=== PATIENT | male | born 1970 | race Caucasian/White ===

== ENCOUNTER 2023-10-24 22:59 | Inpatient (IN) | payer BC ==
[2023-10-25] MEDS: Diphtheria,Pertussis(Acell),Tetanus Vaccine 0.5 ML Syringe IM ONE (02:10)
[2023-10-25] MEDS ORDERED: Sodium Chloride 0.9% 10 ML Syringe FLUSH PRN (02:24)
[2023-10-25] MEDS: Pantoprazole 40 MG Vial IVPUSH SCH (09:00)
[2023-10-25] MEDS ORDERED: Ondansetron 4 MG/2 ML SDV IVPUSH PRN (13:08)
[2023-10-25] MEDS ORDERED: Polyethylene Glycol 3350 Powder 17 GM Packet PO PRN (13:09)
[2023-10-25 13:19] LABS: HEMATOCRIT 43.3 % (38.4-49.7); HEMOGLOBIN 14.9 g/dL (12.9-16.9); MEAN CORPUSCULAR HEMOGLOBIN 29.7 pg (31.6-35.5); MEAN CORPUSCULAR HGB CONC 34.4 g/dL (31.6-35.5); MEAN CORPUSCULAR VOLUME 86.4 fL (81.4-99.0); RED BLOOD CELL COUNT 5.01 M/uL (4.14-5.76); WHITE BLOOD CELL COUNT,WBC 12.5 K/uL (3.2-11.0)
[2023-10-25] MEDS: Calcium Carbonate 500 MG Tab.Chew PO PRN (13:26)
[2023-10-25] MEDS: oxyCODONE 5 MG Tab PO PRN (13:26)
[2023-10-25] MEDS: Heparin Sodium 5,000 Units/ML Vial SUBCUT SCH (13:34)
[2023-10-25 13:35] LABS: CALCIUM 8.9 mg/dL (8.5-10.1); CREATININE 0.9 mg/dL (0.8-1.3); EST CRCL DRUG DOSING (CG) 109.74 mL/min; POTASSIUM,K 3.7 mmol/L (3.6-5.2)
[2023-10-25 13:36] LABS: ANION GAP 12.7 mmol/L (5.0-14.0)
[2023-10-25] MEDS: Sodium Chloride 0.9% 1,000 ML IV SCH (23:59)
[2023-10-26] MEDS ORDERED: Midazolam 1 MG/ML 2 ML SDV ONE (07:21)
[2023-10-26] MEDS ORDERED: fentaNYL 100 MCG/2 ML SDV ONE (07:21)
[2023-10-26] MEDS ORDERED: Propofol 200 MG/20 ML SDV ONE ×2 (07:21→08:52)
[2023-10-26] MEDS: Pantoprazole 40 MG Tab.CR PO SCH (15:31)
[2023-10-26] MEDS: Ketorolac 30 MG/ML SDV IVPUSH PRN (18:27)
[2023-10-27] MEDS: Aspirin 325 MG Tab.EC PO SCH (08:10)
== END 2023-10-27 14:06 | disposition home or self-care (01) | DRG 313 ==
LOC: JP.ED 22:59 → JP.MS 10-25 02:24
PROVIDERS: ADMIT Hospitalist; ATTEND Family Medicine
PROC: 0QSH04Z Reposition Left Tibia with Internal Fixation Device, Open Approach (ICD-10-PCS; principal; 2023-10-25)
DX: S82.142A Displaced bicondylar fracture of left tibia, initial encounter for closed fracture (principal); S72.402A Unspecified fracture of lower end of left femur, initial encounter for closed fracture; K21.9 Gastro-esophageal reflux disease without esophagitis; M54.9 Dorsalgia, unspecified; G89.29 Other chronic pain; Z91.013 Allergy to seafood; Z86.16 Personal history of COVID-19; W55.12XA Struck by horse, initial encounter
CPT/HCPCS: 36415; 73552-26-LT; 73552-LT; 73564-26-LT; 73564-LT; 73700-LT; 76000; 80048; 83735; 85027; 90715; 93005; 97161-GP; 99232; 99238; A9270-GY; C1713; C9113; J0690; J1644; J1885; J2250; J2704; J3010; J3490; J7030

== ENCOUNTER 2024-06-15 08:52 | Day surgery (SDC) | payer BC ==
[2024-06-15] MEDS: Nozin Nasal Sanitizer NASBOTH ONE (09:35)
[2024-06-15] MEDS: Lactated Ringers 1,000 ML IV SCH (09:42)
[2024-06-15 09:45] LABS: HEMATOCRIT 42.4 % (38.4-49.7); HEMOGLOBIN 14.7 g/dL (12.9-16.9); MEAN CORPUSCULAR HEMOGLOBIN 30.1 pg (31.6-35.5); MEAN CORPUSCULAR HGB CONC 34.7 g/dL (31.6-35.5); MEAN CORPUSCULAR VOLUME 86.7 fL (81.4-99.0); RED BLOOD CELL COUNT 4.89 M/uL (4.14-5.76); WHITE BLOOD CELL COUNT,WBC 9.7 K/uL (3.2-11.0)
[2024-06-15 10:05] LABS: ANION GAP 9.6 mmol/L (5.0-14.0); CALCIUM 8.2 mg/dL (8.5-10.1); CREATININE 0.8 mg/dL (0.8-1.3); EST CRCL DRUG DOSING (CG) 122.07 mL/min; POTASSIUM,K 3.9 mmol/L (3.6-5.2)
[2024-06-15] MEDS ORDERED: Dexamethasone 4 MG/ML SDV ONE (10:23)
[2024-06-15] MEDS ORDERED: Ondansetron 4 MG/2 ML SDV ONE (10:23)
[2024-06-15] MEDS ORDERED: Rocuronium 50 MG/5 ML Vial ONE (10:23)
[2024-06-15] MEDS ORDERED: Glycopyrrolate 0.2 MG/ML 5 ML MDV ONE (10:23)
[2024-06-15] MEDS ORDERED: Neostigmine Methylsulfate 10 MG/10 ML MDV ONE (10:23)
[2024-06-15] MEDS ORDERED: Propofol 200 MG/20 ML SDV ONE ×2 (10:23→15:10)
[2024-06-15] MEDS ORDERED: Succinylcholine 200 MG/10 ML MDV ONE (10:23)
[2024-06-15] MEDS ORDERED: fentaNYL 250 MCG/5 ML SDV ONE (10:24)
[2024-06-15] MEDS ORDERED: ceFAZolin 2 GM in Sodium Chloride 0.9% 50 ML IV ONE (10:30)
[2024-06-15] MEDS: ceFAZolin 2 GM in Premix Bag 1 BAG IV ONE (13:35)
[2024-06-15] MEDS ORDERED: fentaNYL 100 MCG/2 ML SDV ONE (14:01)
[2024-06-15] MEDS: Bupivacaine 0.5% 30 ML SDV ONE (14:22)
[2024-06-15] MEDS ORDERED: Lactated Ringers 1,000 ML ONE (14:44)
[2024-06-15] MEDS: Lidocaine 1% 50 ML MDV ONE (15:07)
[2024-06-15] MEDS: Acetaminophen/oxyCODONE 325-5 MG Tab PO ONE (17:34)
== END 2024-06-15 18:03 | disposition home or self-care (01) ==
LOC: JP.SDS 08:52
PROVIDERS: ATTEND Specialist
DX: T84.84XA Pain due to internal orthopedic prosthetic devices, implants and grafts, initial encounter (principal); M94.262 Chondromalacia, left knee; S83.232A Complex tear of medial meniscus, current injury, left knee, initial encounter; M17.12 Unilateral primary osteoarthritis, left knee
CPT/HCPCS: 01400; 20680; 29881; 36415; 80048; 85027; A9270; J0330; J0665; J0690; J1100; J1596; J2405; J2704; J2710; J3010; J7120; J3490